=== PATIENT | male | born 1940 | race African-American/Black ===

== ENCOUNTER 2020-07-10 15:22 | Inpatient (IN) | payer MEDICARE, MEDICAID, SELFPAY ==
--- NOTE | ~2020-07-10 | XR_ITS ---
XR chest 1V 07/10/2020 16:44 Indication: Weakness. Hypotension. Procedure: AP view of the chest Comparison: No prior studies for comparison. Findings: Cardiomegaly. No focal air space disease, pulmonary edema, pleural effusion or suspected pn eumothorax. Advanced osteoarthritis of the shoulders. There is ectasia of the thoracic aorta. Impression: 1: No acute cardiopulmonary disease. Reviewed, dictated and finalized at location A. Impression: 1: No acute cardiopulmonary disease.
--- NOTE | ~2020-07-10 | CT_ITS ---
EXAMINATION: CT brain wo con EXAM DATE: 07/10/2020 16:36 INDICATION: Temporary change in awareness. Hypotension. TECHNIQUE: Spiral CT of the head was performed without contrast. Axial, coronal and sagittal images were reviewed. The dose-length product (DLP) for this examination was 681.00 mGy-cm. The exposure w as tailored according to patient size, and iterative reconstruction (ASIR) was used as additional dos e reduction technique. There is no prior study for comparison. FINDINGS: There is no acute intraparenchymal hemorrhage. No evidence of intraparenchymal brain mass lesion. No evidence of acute infarction. Please note that initial head CT has limited sensitivity f or small or acute infarctions. Punctate old bilateral thalamic lacunar infarctions. There is modera te periventricular and subcortical hypodensity, nonspecific but probably related to small vessel isch emic disease. There is moderate prominence of the sulci and ventricles related to cerebral atrophy. There is intracranial carotid arteriosclerosis. There are no extra-axial collections. There is n o mass effect or midline shift. Patient has had bilateral ocular lens surgery. Soft tissue is unrem arkable. Local cerumen in the external auditory canals. Mastoid air cells and imaged portions of sin uses are normal. IMPRESSION: 1. Punctate old lacunar infarctions. 2. Chronic age related findings. Reviewed, dictated and finalized at location G.
[2020-07-10 15:30] VITALS: BP 136/62; PULSE 60; RESP 20; TEMP 36.6; O2SAT 100
--- NOTE | 2020-07-10 15:45 | ECG_ITS ---
Measurements Intervals [place] Rate: 57 P: 22 MT: 206 QRS: -5 QRSD: 114 T: 22 QT: 419 QTc: 408 Interpretive Statements SINUS BRADYCARDIA WITH FIRST DEGREE AV BLOCK INCOMPLETE LEFT BUNDLE BRANCH BLOCK EARLY PRECORDIAL R/S TRANSITION BASELINE ARTIFACT- I, II, III, AVR, AVL, AVF, V1-V6 ABNORMAL ECG Electronically Signed On 07-10-2020 16:08:41 CDT by Star Patten D.O.
--- NOTE | 2020-07-10 15:55 | ED.GENADULT ---
HPI - General Adult General Chief complaint: Altered Mental Status Stated complaint: weakness, altered mental status Time Seen by Provider: 07/10/20 15:29 Source: family History of Present Illness HPI narrative: Patient is 80 y/o male brought in by son for altered mental status. His son states that patient has been less responsive for several weeks. Patient was hospitalized at [facility] for low BP and discharged on 06/18/2020. Patient has not been able to ambulate since his last admission. He is not talking, although he is able to eat and drink. There is no known alleviating or exacerbating factor. Son states that there is no fever, cough, vomiting or diarrhea. Related Data Home Medications Medication Instructions Recorded Confirmed Unable to Obtain Home Medications 07/10/20 07/10/20 Allergies Allergy/AdvReac Type Severity Reaction Status Date / Time No Known Allergies Allergy Verified 07/10/20 17:21 Review of Systems Review of Systems: ROS unobtainable: Yes unobtainable due to mental status [facility] Family History Family History (Updated 07/10/20 @ 19:04 by Demetria Briseno RN) Other Unknown family medical history Social History Social History Smoking status: Never smoker Alcohol intake: former Substance use: never Spiritual care concerns: No Exam Const: General: no acute distress and well developed Orientation/consciousness: lethargic HENMT: Head: normocephalic Ears: external ears normal General nose exam: Normal external nose present Eyes: General: appearance normal, both eyes and all related structures Conjunctivae: conjunctivae normal Neck: Neck: normal visual inspection and full ROM Chest: Chest palpation & inspection: normal inspection of the chest and no tenderness Resp: Effort & Inspection: normal respiratory effort Auscultation: clear to auscultation bilaterally Cardio: Rate: regular rate Rhythm: regular rhythm GI: GI Palp: No abdominal tenderness and Yes Soft to palpation Skin: General skin exam: normal color and turgor normal Neuro: Motor exam (neuro): Other motor observations present (muscle rigidity) Other: does not answer questions or follow commands Extrem: General: normal to inspection, full ROM and no pedal edema Psych: Appearance: grossly normal Mental Status: mental status grossly abnormal Affect: Blunted affect present Course Consultations Consultation #1: Discussed with BREN Conner, who agrees to admit to Dr. Willis. Date: 07/10/20 Time: 17:13 Vital Signs Vital signs: Vital Signs Temperature 36.6 C 07/10/20 15:30 Pulse Rate 60 07/10/20 15:30 Respiratory Rate 20 07/10/20 15:30 Blood Pressure 136/62 07/10/20 15:30 Pulse Oximetry 100 07/10/20 15:30 Temperature 36.2 C L 07/10/20 18:45 Pulse Rate 113 H 07/10/20 18:45 Respiratory Rate 20 07/10/20 18:45 Blood Pressure 152/99 H 07/10/20 18:45 Pulse Oximetry 100 07/10/20 18:45 Medical Decision Making Vital Signs Vital Signs: Vital Signs Temperature 36.6 C 07/10/20 15:30 Pulse Rate 60 07/10/20 15:30 Respiratory Rate 07/10/20 15:30 Blood Pressure 136/62 07/10/20 15:30 Pulse Oximetry 100 07/10/20 15:30 Temperature 36.2 C L 07/10/20 18:45 Pulse Rate 113 H 07/10/20 18:45 Respiratory Rate 07/10/20 18:45 Blood Pressure 152/99 H 07/10/20 18:45 Pulse Oximetry 100 07/10/20 18:45 Lab Data Result diagrams: 07/10/20 15:50 07/10/20 15:50 Labs: Lab Results 07/10/20 07/10/20 07/10/20 Range/Units 15:50 15:50 15:50 WBC 6.7 (4.5-10.0) K/mm3 RBC 2.84 L (4.6-6.20) M/mm3 Hgb 8.9 L (14.0-18.0) g/dL Hct 27.4 L (42.0-52.0) % MCV 96.5 (80-100) fl MCH 31.3 (26-34) pg MCHC 32.5 (32-36) g/dl RDW 11.9 (11.5-14.5) % Plt Count 251 (150-375) k/mm3 MPV 10.4 (7.4-10.4) fl Immature Gran % (Auto) 0
[2020-07-10 15:58] LABS: Basophils Percent Auto 0.3 % (0.2-1.2); Eosinophils Absolute Auto 0.1 K/mm3 (0-0.3); Eosinophils Percent Auto 0.9 % (0-4.4); Hematocrit 27.4 % (42.0-52.0); Hemoglobin 8.9 g/dL (14.0-18.0); Immature Granulocyte Absolute 0.03 K/mm3 (0.00-0.031); Immature Granulocyte Percent A 0.4 % (0-0.5); Lymphocytes Absolute Auto 0.99 K/mm3 (0.9-3.2); Lymphocytes Percent Auto 14.8 % (18.3-44.2); Mean Corpuscular HGB Conc 32.5 g/dl (32-36); Mean Corpuscular Hemoglobin 31.3 pg (26-34); Mean Corpuscular Volume 96.5 fl (80-100); Mean Platelet Volume 10.4 fl (7.4-10.4); Monocytes Absolute Auto 0.5 K/mm3 (0.1-0.6); Monocytes Percent Auto 7.6 % (2.6-8.5); Neutrophils Absolute Auto 5.1 K/mm3 (1.3-6.7); Platelet Count Result 251 k/mm3 (150-375); Red Blood Count 2.84 M/mm3 (4.6-6.20); Red Cell Distribution Width 11.9 % (11.5-14.5); White Blood Count 6.7 K/mm3 (4.5-10.0)
[2020-07-10 16:07] LABS: Add Urine Microscopic? YES; Amorphous Sediment Urine Few; Appearance Urine Turbid (Clear); Bacteria Urine 2+ /hpf; Bilirubin Urine Negative (Negative); Blood Urine 1+ (Negative); Color Urine Yellow (Yellow); Glucose Urine UA Negative (Negative); Ketones Urine Negative (Negative); Leukocyte Esterase Ur 3+ LEU/UL (Negative); Nitrate Urine Negative (Negative); Protein Urine 2+ mg/dL (Negative); RBC Urine 21-50 /hpf (0-2); Specific Grav Ur 1.014 (1.001-1.035); WBC Clumps Urine Present /HPF; WBC Urine >75 /hpf
[2020-07-10 16:10] LABS: Alanine Aminotransferase 10 U/L (4-50); Alkaline Phosphatase 73 U/L (38-126); Anion Gap 3 mmol/L (8-16); Aspartate Amino Transferase 49 U/L (17-59); Bilirubin,Total 0.5 mg/dL (0.2-1.3); Blood Urea Nitrogen 31 mg/dL (9-20); Calcium 8.7 mg/dL (8.4-10.2); Carbon Dioxide 26 mmol/L (22-30); Chloride 104 mmol/L (98-107); Estimated Glomerular Filt Rate 58; Glucose 141 mg/dL (75-110); Potassium 4.7 mmol/L (3.4-5.0); Sodium 133 mmol/L (137-145)
[2020-07-10] MEDS: SODIUM CHLORIDE 0.9% IV 1,000 ML 999 ML IV CONT (16:11)
[2020-07-10 16:22] LABS: Troponin I < 0.012 ng/mL (0.000-0.034)
[2020-07-10] MEDS: CIPROFLOXACIN 400 MG/D5W 200ML 200 ML 200 MG IVPB (17:25)
[2020-07-10 17:26] VITALS: BP 146/91; PULSE 63; RESP 18; O2SAT 98
--- NOTE | 2020-07-10 17:58 | PC.NURSE ---
Pt son name Puma. [phone]
[2020-07-10 18:00] VITALS: BP 145/88; PULSE 70; RESP 18; TEMP 37.1; O2SAT 98
[2020-07-10 18:45] VITALS: BP 152/99; PULSE 113; RESP 20; TEMP 36.2; O2SAT 100
[2020-07-10 18:46] VITALS: BMI 25.4
--- NOTE | 2020-07-10 19:05 | PC.NURSE ---
This patient, Aditya Valentin, was admitted to Medical Room 344-01. Patient/family oriented to hospital policies and general routines including ID bracelet, bed and alarms, visiting hours, pain management, procedures, bathroom and other care routines, personal items, smoking policy, room service/diet, and visiting hours. Valuables list has been completed. Information on how to activate the Rapid Response Team has been discussed. Patient/Family are encouraged to report perceived risks to care and to ask questions if they do not understand what they are told or what they should do.
--- NOTE | 2020-07-10 19:30 | PM.IMHP ---
H&P: HPI History of Present Illness Date/Time: 07/10/20 19:30 Chief complaint: Weakness and confusion. Narrative: Aditya Valentin is a very pleasant 80-year-old male with Parkinson's, type 2 diabetes mellitus, and hypertension who presented to the emergency department earlier this afternoon via private vehicle from home for evaluation of generalized weakness and confusion. The patient is able to provide a fair history but is confused at times even appearing to have visual hallucinations (clapping his hands in the air to kill mosquitos that are not there) and as such some of this medical history is obtained via a review of his electronic medical records. I do not see that he has been seen at this facility before and I believe he typically goes to [place] and in fact was hospitalized there from 06/14 through 06/21 for anemia due to GI loss, dehydration with acute kidney injury, and urinary tract infection. He has been profoundly weak since discharge and has not even been able to ambulate, requiring his son's to help him get out of bed to a chair and to the bathroom. By nature he has a quiet demeanor but has been less responsive and talkative for the last several weeks and now seems to be a bit confused. He is apparently eating and drinking as per his usual, but he does admit that sometimes he will cough when eating but he denies history of aspiration. It is my understanding that he is chronically incontinent of urine and he denies dysuria, urgency, hesitancy, and symptoms of incomplete evacuation of his bladder (it is noted that he has BPH, however). He also denies headache, dizziness, focal weakness, paresthesias, fever, chills, sweats, cold and flu symptoms, nausea, vomiting, and diarrhea. There is no mention of any recent falls. Review of Systems Review of Systems: Narrative: Twelve systems were reviewed with pertinent positives and negatives as per HPI. Except as documented, all other systems were reviewed and are negative. 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 Essential hypertension Osteoarthritis Parkinsons disease Type 2 diabetes mellitus Surgical History Surgical History (Updated 07/10/20 @ 19:33 by Dalila G. Gerling, PA-C) History of cholecystectomy Family History Family History (Updated 07/10/20 @ 23:05 by Dalila Su PA-C) Father Malignant neoplasm of prostate Social History Social History (Updated 07/10/20 @ 23:06 by Dalila Su PA-C) Social History: The patient lives in [place] with his son. He is retired from [employer]. He has remote smoking history and quit over 30 years ago. He no longer drinks alcohol and denies illicit substance use. His son, Delonte Valentin, is his surrogate decision maker and he is listed as a full code. Spiritual care concerns: No Meds Home Medications and Allergies Home Medications Medication Instructions Recorded Confirmed Type Unable to Obtain Home Medications 07/10/20 07/10/20 History Allergies Allergy/AdvReac Type Severity Reaction Status Date / Time No Known Allergies Allergy Verified 07/10/20 17:21 Vital Signs Vital Signs - 24 hr 07/10/20 15:30 07/10/20 17:26 07/10/20 18:00 Temperature 97.8 F 98.7 F Pulse Rate 60 63 70 Respiratory Rate 20 18 18 Blood Pressure 136/62 146/91 H 145/88 H Pulse Oximetry 100 98 98 07/10/20 18:45 Temperature 97.1 F L Pulse Rate 113 H Respiratory Rate 20 Blood Pressure 152/99 H Pulse Oximetry 100 Exam Narrative: Exam Narrative: General: A well-developed elderly male in the semi-[place] position in bed in no distress. He is nontoxic in appearance. Weight: 78 kg. BMI: 25.4. HEENT: Masked facies. Pupils reactive. Extraocular motions intact. Oral mucosa moist. Upper denture plate in place. No bottom
--- NOTE | 2020-07-10 19:30 | PC.NURSE ---
Patient son Puma per telephone call voiced that he will bring patient s home medications in on tomorrow. Notified night nurse of the same.
[2020-07-10 19:45] LABS: Troponin I < 0.012 ng/mL (0.000-0.034)
[2020-07-10] MEDS: SODIUM CHLORIDE 0.9% IV 1,000 ML 100 ML IV CONT (20:09)
[2020-07-10 20:15] VITALS: PULSE 56
[2020-07-10 20:30] VITALS: BP 142/65; PULSE 62; RESP 18; TEMP 36.6; O2SAT 100
[2020-07-10 21:49] LABS: Hematocrit 25.4 % (42.0-52.0); Hemoglobin 8.3 g/dL (14.0-18.0)
[2020-07-10 21:59] LABS: Hemoglobin A1C 5.6 % (<5.7)
[2020-07-10 22:00] LABS: Sodium 134 mmol/L (137-145)
[2020-07-10 22:14] LABS: Troponin I < 0.012 ng/mL (0.000-0.034)
[2020-07-10 23:07] LABS: Folic Acid 7.5 ng/mL (2.76->20)
[2020-07-11] VITALS (12 sets, daily range): BP systolic 106–182; BP diastolic 49–143; PULSE 54–69; RESP 12–18; TEMP 36.1–36.6; O2SAT 98–100
[2020-07-11 00:23] LABS: Iron 33 ug/dL (49-181)
[2020-07-11 00:34] LABS: Percent Iron Saturation 19 % (20-50)
[2020-07-11 05:07] LABS: Hematocrit 25.6 % (42.0-52.0); Hemoglobin 8.4 g/dL (14.0-18.0); Mean Corpuscular HGB Conc 32.8 g/dl (32-36); Mean Corpuscular Hemoglobin 31.7 pg (26-34); Mean Corpuscular Volume 96.6 fl (80-100); Mean Platelet Volume 10.3 fl (7.4-10.4); Platelet Count Result 236 k/mm3 (150-375); Red Blood Count 2.65 M/mm3 (4.6-6.20); Red Cell Distribution Width 11.9 % (11.5-14.5); White Blood Count 6.5 K/mm3 (4.5-10.0)
[2020-07-11 05:17] LABS: Anion Gap 2 mmol/L (8-16); Blood Urea Nitrogen 23 mg/dL (9-20); Calcium 8.2 mg/dL (8.4-10.2); Carbon Dioxide 26 mmol/L (22-30); Chloride 108 mmol/L (98-107); Estimated CRCL calculation 53 ml/min; Estimated Glomerular Filt Rate > 60; Glucose 68 mg/dL (75-110); Potassium 4.3 mmol/L (3.4-5.0); Sodium 136 mmol/L (137-145)
--- NOTE | 2020-07-11 06:39 | PC.NURSE ---
Phone call to Dr. Chavez to notify him of the consult needed for this patient. Spoke with him directly and gave information for the consult. Dr. Chavez stated he will be in to see the patient.
[2020-07-11 07:36] LABS: Glucose Point of Care 73 (65-105)
[2020-07-11 11:35] LABS: Glucose Point of Care 100 (65-105)
--- NOTE | 2020-07-11 13:15 | PM.IMPN ---
Progress Note: A&P Assessment and Plan (1) Confusion: Code(s): R41.0 - Disorientation, unspecified Status: Acute Assessment and Plan: 07/11/20 13:15 patient is 80-year-old male a history of hypertension diabetes Parkinson's BPH was brought to emergency department for further evaluation due to increased confusion weakness and unable to do ADLs, patient was recently admitted at [facility] with anemia due to GI blood loss, dehydration and acute kidney injuryand since he was discharge on 06/21 he has been very weak and tired and getting worse, his son brought into the hospital further evaluation and management, currently his quite confused unable to provide detailed review of symptom is alert to himself but unable to give any more history or details, plan is to continue monitor will have a PT OT evaluate the patient patient may benefit going into custodial as he will need more help with ADLs then his family is able to provide (2) Urinary tract infection: Code(s): N39.0 - Urinary tract infection, site not specified Status: Acute Assessment and Plan: Patient is started on Rocephin will follow-up on urine culture and sensitivity further recommendation to follow (3) Protein calorie malnutrition: Code(s): E46 - Unspecified protein-calorie malnutrition Status: Acute Assessment and Plan: will have dietitian consult the patient and recommendation (4) Generalized weakness: Code(s): R53.1 - Weakness Status: Acute Assessment and Plan: will have a PT OT evaluate the (5) Essential hypertension: Code(s): I10 - Essential (primary) hypertension Status: Acute Assessment and Plan: will continue home regimen and monitor (6) Type 2 diabetes mellitus: Code(s): E11.9 - Type 2 diabetes mellitus without complications Status: Acute Assessment and Plan: his hemoglobin A1c is 5.7 diabetes very well controlled, will hold glimepiride while in the hospital as his sugar was low upon arrival will continue to monitor with sliding scale (7) Parkinsons disease: Code(s): G20 - Parkinson's disease Status: Acute Assessment and Plan: will continue home regimen (8) Benign prostatic hyperplasia: Code(s): N40.0 - Benign prostatic hyperplasia without lower urinary tract symptoms Status: Acute Assessment and Plan: patient is on Flomax and trazosin, I am not sure why two medicatios however he is still having problem with BPH, will stop and start finasteride. (9) Normocytic anemia: Code(s): D64.9 - Anemia, unspecified Status: Acute Assessment and Plan: will monitor daily Subjective Date/time seen: 07/11/20 13:15 patient is 80-year-old male a history of hypertension diabetes Parkinson's BPH was brought to emergency department for further evaluation due to increased confusion weakness and unable to do ADLs, patient was recently admitted at [facility] with anemia due to GI blood loss, dehydration and acute kidney injuryand since he was discharge on 06/21 he has been very weak and tired and getting worse, his son brought into the hospital further evaluation and management, currently his quite confused unable to provide detailed review of symptom is alert to himself but unable to give any more history or details, plan is to continue monitor will have a PT OT evaluate the patient patient may benefit going into custodial as he will need more help with ADLs then his family is able to provide Review of Systems Review of Systems: All systems reviewed & are unremarkable except as noted in HPI and below Exam Narrative: Exam Narrative: elderly frail confused Const: General: comfortable and no acute distress HENMT: General nose exam: Normal nares present Eyes: General: appearance normal, both eyes and all related structures Scle
[2020-07-11] MEDS: TAMSULOSIN HCL 0.4 MG CAPSULE PO (13:20)
--- NOTE | 2020-07-11 13:22 | WPDNEURCNPN ---
Assessment and Plan Assessment and plan (1) Normocytic anemia: Code(s): D64.9 - Anemia, unspecified Status: Acute (2) Generalized weakness: Code(s): R53.1 - Weakness Status: Acute (3) Protein calorie malnutrition: Code(s): E46 - Unspecified protein-calorie malnutrition Status: Acute (4) Mild dehydration: Code(s): E86.0 - Dehydration Status: Acute (5) Urinary tract infection: Code(s): N39.0 - Urinary tract infection, site not specified Status: Acute (6) Confusion: Code(s): R41.0 - Disorientation, unspecified Status: Acute (7) Benign prostatic hyperplasia: Code(s): N40.0 - Benign prostatic hyperplasia without lower urinary tract symptoms Status: Acute (8) Essential hypertension: Code(s): I10 - Essential (primary) hypertension Status: Acute (9) Type 2 diabetes mellitus: Code(s): E11.9 - Type 2 diabetes mellitus without complications Status: Acute (10) Parkinsons disease: Code(s): G20 - Parkinson's disease Status: Acute (11) UTI (urinary tract infection): Qualifiers: Hematuria presence: without hematuria Urinary tract infection type: site unspecified Qualified Code(s): N39.0 - Urinary tract infection, site not specified Code(s): N39.0 - Urinary tract infection, site not specified Status: Acute Additional Plan at this point I have asked the nurse to increase his carbidopa levodopa to 1-1/2 3 times a day while he is being observed here and active physical therapy of compression therapy and gait training is in order and he certainly has a neurologist who has seen him in the past and hopefully his going to get better and can have a follow-up with him Consult date: 07/11/20 Time Seen: 13:00 HPI: Aditya Valentin is a 80 year old male who is awake and alert right-handed and able to tell me that he does follow with Dr. Dyer in [facility] for the diagnosis of Parkinson's disease and she is also able to remember that he was admitted at [facility] and since then he has not been able to walk he does except he does have tremor at times it is difficult for him to shave and use his arms and of course he has difficulty walking he does not have any neck pain back pain or lower back pain however incontinent at this time he is being treated for the presumed urinary tract infection Not too long ago he was admitted gait with and since then he has not been able to walk as he did not get any therapy done he also tells me that he has an appointment to see Dr. 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 Essential hypertension Osteoarthritis Parkinsons disease Type 2 diabetes mellitus Surgical History Surgical History History of cholecystectomy Family History Family History Father Malignant neoplasm of prostate Social History Social History Social History: The patient lives in [place] with his son. He is retired from [employer]. He has remote smoking history and quit over 30 years ago. He no longer drinks alcohol and denies illicit substance use. His son, Delonte Valentin, is his surrogate decision maker and he is listed as a full code. Spiritual care concerns: No Meds Home Medications and Allergies Home Medications Medication Instructions Recorded Confirmed Type amlodipine 10 mg DAILY 07/11/20 07/11/20 History carbidopa-levodopa 1 tablet TID 07/11/20 07/11/20 History glimepiride 2 mg DAILY 07/11/20 0
[2020-07-11] MEDS: FINASTERIDE 5 MG TABLET PO (16:15)
[2020-07-11] MEDS: CARBIDOPA/LEVODOPA 12.5/50 MG TABLET 1 TABLET PO (16:16)
[2020-07-11] MEDS: CARBIDOPA/LEVODOPA 25/100 MG TABLET 1 TABLET PO (16:22)
[2020-07-11 16:29] LABS: Glucose Point of Care 119 (65-105)
[2020-07-11 23:34] LABS: Glucose Point of Care 110 (65-105)
[2020-07-12] VITALS (10 sets, daily range): BP systolic 119–187; BP diastolic 52–122; PULSE 54–64; RESP 16–18; TEMP 35.6–36.4; O2SAT 97–100
[2020-07-12 05:38] LABS: Hematocrit 25.6 % (42.0-52.0); Hemoglobin 8.7 g/dL (14.0-18.0); Mean Corpuscular Volume 94.1 fl (80-100); Mean Platelet Volume 10.1 fl (7.4-10.4); Platelet Count Result 240 k/mm3 (150-375); Red Blood Count 2.72 M/mm3 (4.6-6.20); Red Cell Distribution Width 11.7 % (11.5-14.5); White Blood Count 6.6 K/mm3 (4.5-10.0)
[2020-07-12 05:56] LABS: Anion Gap 3 mmol/L (8-16); Blood Urea Nitrogen 20 mg/dL (9-20); Calcium 8.6 mg/dL (8.4-10.2); Carbon Dioxide 27 mmol/L (22-30); Chloride 104 mmol/L (98-107); Estimated CRCL calculation 58 ml/min; Estimated Glomerular Filt Rate > 60; Glucose 95 mg/dL (75-110); Potassium 4.5 mmol/L (3.4-5.0); Sodium 134 mmol/L (137-145)
[2020-07-12 08:00] LABS: Glucose Point of Care 106 (65-105)
[2020-07-12] MEDS: CARBIDOPA/LEVODOPA 12.5/50 MG TABLET 1 TABLET PO ×3 (09:52→17:48)
[2020-07-12] MEDS: SPIRONOLACTONE 25 MG TABLET PO (09:53)
[2020-07-12] MEDS: amLODIPine BESYLATE 5 MG TABLET 10 MG PO (09:53)
[2020-07-12] MEDS: FINASTERIDE 5 MG TABLET PO (09:54)
[2020-07-12] MEDS: CARBIDOPA/LEVODOPA 25/100 MG TABLET 1 TABLET PO ×3 (09:54→17:47)
[2020-07-12] MEDS: LOSARTAN POTASSIUM 100 MG TABLET PO (09:55)
[2020-07-12 11:30] LABS: Glucose Point of Care 94 (65-105)
[2020-07-12] MEDS: TAMSULOSIN HCL 0.4 MG CAPSULE PO (11:33)
[2020-07-12 13:21] LABS: SARS-CoV-2 RNA PCR Negative
--- NOTE | 2020-07-12 15:08 | PM.IMPN ---
Progress Note: A&P Assessment and Plan (1) Confusion: Code(s): R41.0 - Disorientation, unspecified Status: Acute Assessment and Plan: 07/12/20 15:08 patient is 80-year-old male admitted on 07/10 a history of hypertension diabetes Parkinson's BPH was brought to emergency department for further evaluation due to increased confusion weakness and unable to do ADLs, patient was recently admitted at [facility] with anemia due to GI blood loss, dehydration and acute kidney injuryand since he was discharge on 06/21 he has been very weak and tired and getting worse, his son brought into the hospital further evaluation and management, today on 07/12 currently he is still quite confused unable to provide detailed review of symptom is alert to himself but unable to give any more history or details, his urine culture is growing Pseudomonas sensitive to cefepime will DC Rocephin to start the antibiotic, patient with history of BPH he is on flomax, I have added finasteride this may help with urine flow, plan is to continue monitor will have a PT OT evaluate the patient, patient may benefit going into fpc as he will need more help with ADLs then his family is able to provide (2) Urinary tract infection: Code(s): N39.0 - Urinary tract infection, site not specified Status: Acute Assessment and Plan: Patient had started on Rocephin urine culture is growing Pseudomonas sensitive to cefepime, (3) Protein calorie malnutrition: Code(s): E46 - Unspecified protein-calorie malnutrition Status: Acute Assessment and Plan: will have dietitian consult the patient and recommendation (4) Generalized weakness: Code(s): R53.1 - Weakness Status: Acute Assessment and Plan: will have a PT OT evaluate the (5) Essential hypertension: Code(s): I10 - Essential (primary) hypertension Status: Acute Assessment and Plan: will continue home regimen and monitor (6) Type 2 diabetes mellitus: Code(s): E11.9 - Type 2 diabetes mellitus without complications Status: Acute Assessment and Plan: his hemoglobin A1c is 5.7 diabetes very well controlled, will hold glimepiride while in the hospital as his sugar was low upon arrival will continue to monitor with sliding scale (7) Parkinsons disease: Code(s): G20 - Parkinson's disease Status: Acute Assessment and Plan: will continue home regimen (8) Benign prostatic hyperplasia: Code(s): N40.0 - Benign prostatic hyperplasia without lower urinary tract symptoms Status: Acute Assessment and Plan: patient is on Flomax and trazosin, I am not sure why two medicatios however he is still having problem with BPH, will stop and start finasteride. (9) Normocytic anemia: Code(s): D64.9 - Anemia, unspecified Status: Acute Assessment and Plan: will monitor daily Subjective Date/time seen: 07/12/20 15:08 patient is 80-year-old male admitted on 07/10 a history of hypertension diabetes Parkinson's BPH was brought to emergency department for further evaluation due to increased confusion weakness and unable to do ADLs, patient was recently admitted at [facility] with anemia due to GI blood loss, dehydration and acute kidney injuryand since he was discharge on 06/21 he has been very weak and tired and getting worse, his son brought into the hospital further evaluation and management, today on 07/12 currently he is still quite confused unable to provide detailed review of symptom is alert to himself but unable to give any more history or details, his urine culture is growing Pseudomonas sensitive to cefepime will DC Rocephin to start the antibiotic, patient with history of BPH he is on flomax, I have added finasteride this may help with urine flow, plan is to continue monitor will have a PT OT evaluate the
--- NOTE | 2020-07-12 16:19 | PCPTNOTE ---
The patient treatment was not able to be completed on 07/12/2020. Will plan to continue treatment per plan of care.
[2020-07-12 16:41] LABS: Glucose Point of Care 133 (65-105)
[2020-07-12 22:26] LABS: Glucose Point of Care 114 (65-105)
[2020-07-13] VITALS (9 sets, daily range): BP systolic 146–164; BP diastolic 68–89; PULSE 58–68; RESP 17–18; TEMP 36.1–36.5; O2SAT 99–100
[2020-07-13 05:42] LABS: Hematocrit 25.3 % (42.0-52.0); Hemoglobin 8.4 g/dL (14.0-18.0); Mean Corpuscular HGB Conc 33.2 g/dl (32-36); Mean Corpuscular Hemoglobin 31.1 pg (26-34); Mean Corpuscular Volume 93.7 fl (80-100); Mean Platelet Volume 9.9 fl (7.4-10.4); Platelet Count Result 214 k/mm3 (150-375); Red Cell Distribution Width 11.6 % (11.5-14.5); White Blood Count 5.5 K/mm3 (4.5-10.0)
[2020-07-13 06:03] LABS: Anion Gap 2 mmol/L (8-16); Blood Urea Nitrogen 19 mg/dL (9-20); Calcium 8.8 mg/dL (8.4-10.2); Carbon Dioxide 28 mmol/L (22-30); Chloride 103 mmol/L (98-107); Estimated CRCL calculation 65 ml/min; Estimated Glomerular Filt Rate > 60; Glucose 95 mg/dL (75-110); Potassium 4.5 mmol/L (3.4-5.0); Sodium 133 mmol/L (137-145)
[2020-07-13 07:47] LABS: Glucose Point of Care 84 (65-105)
--- NOTE | 2020-07-13 09:04 | PCPTNOTE ---
PT attempted bed mobility and transfer from bed to chair, however patient resisted attempts to roll and swatted at therapist when attempting to assist patient. LE exercises were initiated with active assist but patient then resisted movement after ~10 reps of knee flexion, hip flexion, abduction and adduction.
[2020-07-13] MEDS: FINASTERIDE 5 MG TABLET PO (09:44)
[2020-07-13] MEDS: LOSARTAN POTASSIUM 100 MG TABLET PO (09:44)
[2020-07-13] MEDS: amLODIPine BESYLATE 5 MG TABLET 10 MG PO (09:44)
[2020-07-13] MEDS: CARBIDOPA/LEVODOPA 25/100 MG TABLET 1 TABLET PO (09:44)
[2020-07-13] MEDS: SPIRONOLACTONE 25 MG TABLET PO (09:44)
--- NOTE | 2020-07-13 09:52 | PC.NURSE ---
Carbidopa 12.5-50 will not scan, sent to pharmacy for verification; administration pending medication availability.
[2020-07-13] MEDS: CARBIDOPA/LEVODOPA 12.5/50 MG TABLET 1 TABLET PO (10:51)
[2020-07-13 11:55] LABS: Glucose Point of Care 88 (65-105)
--- NOTE | 2020-07-13 13:06 | PCOTNOTE ---
Attempted to see patient for skilled OT. Patient unable to follow 1-step commands and during attempt to perform AAROM/PROM patient became agitated and resistive and was unwilling to participate. Will continue plan of care tomorrow, 07/14/2020.
--- NOTE | 2020-07-13 13:42 | PM.IMPN ---
Progress Note: A&P Assessment and Plan (1) Confusion: Code(s): R41.0 - Disorientation, unspecified Status: Acute Assessment and Plan: 07/13/20 13:42 patient is 80-year-old male admitted on 07/10 a history of hypertension diabetes Parkinson's BPH was brought to emergency department for further evaluation due to increased confusion weakness and unable to do ADLs, patient was recently admitted at [facility] with anemia due to GI blood loss, dehydration and acute kidney injuryand since he was discharge on 06/21 he has been very weak and tired and getting worse, his son brought into the hospital further evaluation and management, today on 07/13 currently he is still more confused, uncooperative not taking his medications and does not participate in PT/OT unable to provide detailed review of symptom is alert to himself but unable to give any more history or details, his urine culture is growing Pseudomonas sensitive to cefepime will DC Rocephin to start the antibiotic, patient with history of BPH he is on flomax, I have added finasteride this may help with urine flow, patient with Parkinson and seen by neurologist and increased his Sinemet, plan is to continue monitor will have a PT OT evaluate the patient, patient may benefit going into [facility] as he will need more help with ADLs then his family is able to provide (2) Urinary tract infection: Code(s): N39.0 - Urinary tract infection, site not specified Status: Acute Assessment and Plan: Patient had started on Rocephin urine culture is growing Pseudomonas sensitive to cefepime, (3) Protein calorie malnutrition: Code(s): E46 - Unspecified protein-calorie malnutrition Status: Acute Assessment and Plan: will have dietitian consult the patient and recommendation (4) Generalized weakness: Code(s): R53.1 - Weakness Status: Acute Assessment and Plan: will have a PT OT evaluate the (5) Essential hypertension: Code(s): I10 - Essential (primary) hypertension Status: Acute Assessment and Plan: will continue home regimen and monitor (6) Type 2 diabetes mellitus: Code(s): E11.9 - Type 2 diabetes mellitus without complications Status: Acute Assessment and Plan: his hemoglobin A1c is 5.7 diabetes very well controlled, will hold glimepiride while in the hospital as his sugar was low upon arrival will continue to monitor with sliding scale (7) Parkinsons disease: Code(s): G20 - Parkinson's disease Status: Acute Assessment and Plan: will continue home regimen plan is above, (8) Benign prostatic hyperplasia: Code(s): N40.0 - Benign prostatic hyperplasia without lower urinary tract symptoms Status: Acute Assessment and Plan: patient is on Flomax and trazosin, I am not sure why two medicatios however he is still having problem with BPH, will stop and start finasteride. (9) Normocytic anemia: Code(s): D64.9 - Anemia, unspecified Status: Acute Assessment and Plan: will monitor daily Subjective Date/time seen: 07/13/20 13:42 patient is 80-year-old male admitted on 07/10 a history of hypertension diabetes Parkinson's BPH was brought to emergency department for further evaluation due to increased confusion weakness and unable to do ADLs, patient was recently admitted at [facility] with anemia due to GI blood loss, dehydration and acute kidney injuryand since he was discharge on 06/21 he has been very weak and tired and getting worse, his son brought into the hospital further evaluation and management, today on 07/13 currently he is still more confused, uncooperative not taking his medications and does not participate in PT/OT unable to provide detailed review of symptom is alert to himself but unable to give any more history or details, his urine culture is jalen
[2020-07-13 17:05] LABS: Glucose Point of Care 96 (65-105)
[2020-07-13 23:47] LABS: Glucose Point of Care 87 (65-105)
[2020-07-14] VITALS: BP 94/63; PULSE 73; RESP 18; TEMP 36.7; O2SAT 98
[2020-07-14 04:00] VITALS: BP 117/77; PULSE 74; RESP 16; TEMP 36.2; O2SAT 99
[2020-07-14 04:24] VITALS: PULSE 74
[2020-07-14 05:45] LABS: Hematocrit 25.7 % (42.0-52.0); Hemoglobin 8.5 g/dL (14.0-18.0); Mean Corpuscular HGB Conc 33.1 g/dl (32-36); Mean Corpuscular Hemoglobin 30.9 pg (26-34); Mean Corpuscular Volume 93.5 fl (80-100); Platelet Count Result 226 k/mm3 (150-375); Red Blood Count 2.75 M/mm3 (4.6-6.20); Red Cell Distribution Width 11.7 % (11.5-14.5); White Blood Count 5.1 K/mm3 (4.5-10.0)
[2020-07-14 06:04] LABS: Anion Gap 3 mmol/L (8-16); Blood Urea Nitrogen 17 mg/dL (9-20); Carbon Dioxide 27 mmol/L (22-30); Chloride 102 mmol/L (98-107); Estimated CRCL calculation 58 ml/min; Estimated Glomerular Filt Rate > 60; Glucose 90 mg/dL (75-110); Potassium 4.4 mmol/L (3.4-5.0); Sodium 132 mmol/L (137-145)
[2020-07-14 08:00] VITALS: PULSE 69
[2020-07-14 08:06] LABS: Glucose Point of Care 76 (65-105)
[2020-07-14] MEDS: SPIRONOLACTONE 25 MG TABLET PO (09:16)
--- NOTE | 2020-07-14 10:41 | PM.IMPN ---
Progress Note: A&P Assessment and Plan (1) Confusion: Code(s): R41.0 - Disorientation, unspecified Status: Acute Assessment and Plan: 07/14/20 10:41 patient is 80-year-old male admitted on 07/10 a history of hypertension diabetes Parkinson's BPH was brought to emergency department for further evaluation due to increased confusion weakness and unable to do ADLs, patient was recently admitted at [facility] with anemia due to GI blood loss, dehydration and acute kidney injuryand since he was discharge on 06/21 he has been very weak and tired and getting worse, his son brought into the hospital further evaluation and management, today on 07/14 currently he is still more confused, uncooperative not taking his medications and does not participate in PT/OT unable to provide detailed review of symptom is alert to himself but unable to give any more history or details, his urine culture is growing Pseudomonas sensitive to cefepime will DC Rocephin started the antibiotic on 07/12, patient with history of BPH he is on flomax, I have added finasteride this may help with urine flow, lipscomb has not taken the medications for 2 days, patient with Parkinson and seen by neurologist and increased his Sinemet again patient has taken his medication for 2 days, plan is to continue monitor will have a PT OT evaluate the patient, I spoke to patient and will call patient son to discuss future planning, as patient is refusing his medications and participating in PT/OT, may consider hospice. patient may benefit going into [facility] as he will need more help with ADLs then his family is able to provide (2) Urinary tract infection: Code(s): N39.0 - Urinary tract infection, site not specified Status: Acute Assessment and Plan: Patient had started on Rocephin urine culture is growing Pseudomonas sensitive to cefepime, (3) Protein calorie malnutrition: Code(s): E46 - Unspecified protein-calorie malnutrition Status: Acute Assessment and Plan: will have dietitian consult the patient and recommendation (4) Generalized weakness: Code(s): R53.1 - Weakness Status: Acute Assessment and Plan: will have a PT OT evaluate the (5) Essential hypertension: Code(s): I10 - Essential (primary) hypertension Status: Acute Assessment and Plan: will continue home regimen and monitor (6) Type 2 diabetes mellitus: Code(s): E11.9 - Type 2 diabetes mellitus without complications Status: Acute Assessment and Plan: his hemoglobin A1c is 5.7 diabetes very well controlled, will hold glimepiride while in the hospital as his sugar was low upon arrival will continue to monitor with sliding scale (7) Parkinsons disease: Code(s): G20 - Parkinson's disease Status: Acute Assessment and Plan: will continue home regimen plan is above, (8) Benign prostatic hyperplasia: Code(s): N40.0 - Benign prostatic hyperplasia without lower urinary tract symptoms Status: Acute Assessment and Plan: patient is on Flomax and trazosin, I am not sure why two medicatios however he is still having problem with BPH, will stop and start finasteride. (9) Normocytic anemia: Code(s): D64.9 - Anemia, unspecified Status: Acute Assessment and Plan: will monitor daily Subjective Date/time seen: 07/14/20 10:41 patient is 80-year-old male admitted on 07/10 a history of hypertension diabetes Parkinson's BPH was brought to emergency department for further evaluation due to increased confusion weakness and unable to do ADLs, patient was recently admitted at [facility] with anemia due to GI blood loss, dehydration and acute kidney injuryand since he was discharge on 06/21 he has been very weak and tired and getting worse, his son brought into the hospital further evaluation and manageme
--- NOTE | 2020-07-14 11:43 | PC.NURSE ---
Dr. Lynn and Dr. Evans have both been notified that patient is continuing to refuse medications and is resistant to care. Family has been requested to come to the hospital for a face to face conversation r/t patient care and planning.
[2020-07-14 12:00] VITALS: PULSE 77
[2020-07-14 12:35] LABS: Glucose Point of Care 129 (65-105)
[2020-07-14 16:32] LABS: Glucose Point of Care 103 (65-105)
[2020-07-14 20:00] VITALS: BP 135/83; PULSE 70; RESP 14; TEMP 36.1; O2SAT 100
[2020-07-14 22:28] LABS: Glucose Point of Care 104 (65-105)
[2020-07-15] VITALS: BP 138/69; PULSE 67; RESP 16; TEMP 36.6; O2SAT 100
[2020-07-15 04:00] VITALS: BP 123/65; PULSE 61; RESP 16; TEMP 36.3; O2SAT 100
[2020-07-15 07:11] LABS: Hematocrit 25.9 % (42.0-52.0); Hemoglobin 8.7 g/dL (14.0-18.0); Mean Corpuscular HGB Conc 33.6 g/dl (32-36); Mean Corpuscular Hemoglobin 31.4 pg (26-34); Mean Corpuscular Volume 93.5 fl (80-100); Mean Platelet Volume 10.2 fl (7.4-10.4); Platelet Count Result 205 k/mm3 (150-375); Red Blood Count 2.77 M/mm3 (4.6-6.20); Red Cell Distribution Width 11.8 % (11.5-14.5); White Blood Count 6.1 K/mm3 (4.5-10.0)
[2020-07-15 07:25] LABS: Anion Gap 2 mmol/L (8-16); Blood Urea Nitrogen 28 mg/dL (9-20); Carbon Dioxide 27 mmol/L (22-30); Chloride 103 mmol/L (98-107); Estimated CRCL calculation 45 ml/min; Estimated Glomerular Filt Rate > 60; Glucose 80 mg/dL (75-110); Potassium 4.7 mmol/L (3.4-5.0); Sodium 132 mmol/L (137-145)
[2020-07-15 07:55] LABS: Glucose Point of Care 71 (65-105)
[2020-07-15] MEDS: CARBIDOPA/LEVODOPA 25/100 MG TABLET 1 TABLET PO ×2 (12:02→16:55)
[2020-07-15] MEDS: CARBIDOPA/LEVODOPA 12.5/50 MG TABLET 1 TABLET PO ×2 (12:02→16:55)
--- NOTE | 2020-07-15 12:24 | PCOTNOTE ---
OT treatment not completed this date due to patient's increased agitation stating Get out of my room!
[2020-07-15 14:08] LABS: Glucose Point of Care 73 (65-105)
[2020-07-15 15:16] VITALS: BP 110/63; PULSE 60; RESP 16; TEMP 36.3; O2SAT 100
--- NOTE | 2020-07-15 15:27 | PM.IMPN ---
Progress Note: A&P Assessment and Plan (1) Confusion: Code(s): R41.0 - Disorientation, unspecified Status: Acute Assessment and Plan: 07/15/20 15:27 patient is 80-year-old male admitted on 07/10 a history of hypertension diabetes Parkinson's BPH was brought to emergency department for further evaluation due to increased confusion weakness and unable to do ADLs, patient was recently admitted at [facility] with anemia due to GI blood loss, dehydration and acute kidney injuryand since he was discharge on 06/21 he has been very weak and tired and getting worse, his son brought into the hospital further evaluation and management, today on 07/14 currently he is still more confused, uncooperative not taking his medications and does not participate in PT/OT unable to provide detailed review of symptom is alert to himself but unable to give any more history or details, his urine culture is growing Pseudomonas sensitive to cefepime will DC Rocephin started the antibiotic on 07/12, patient with history of BPH he is on flomax, I have added finasteride this may help with urine flow, lipscomb has not taken the medications for 2 days, patient with Parkinson and seen by neurologist and increased his Sinemet again patient has taken his medication for 2 days, plan is to continue monitor will have a PT OT evaluate the patient, on 07/14 patient son was present in the room and I spoke with him, as his father dementia is getting worse, he is not cooperative with his care and does not want to take his medication, he may want to consider comfort care or hospice today on 07/15 he met with hospice service and agreed to admit his father under hospice care. today patient is very Somnolent and not very cooperative., will discharge patient tomorrow under hospice care (2) Urinary tract infection: Code(s): N39.0 - Urinary tract infection, site not specified Status: Acute Assessment and Plan: Patient had started on Rocephin urine culture is growing Pseudomonas sensitive to cefepime, (3) Protein calorie malnutrition: Code(s): E46 - Unspecified protein-calorie malnutrition Status: Acute Assessment and Plan: will have dietitian consult the patient and recommendation (4) Generalized weakness: Code(s): R53.1 - Weakness Status: Acute Assessment and Plan: will have a PT OT evaluate the (5) Essential hypertension: Code(s): I10 - Essential (primary) hypertension Status: Acute Assessment and Plan: will continue home regimen and monitor (6) Type 2 diabetes mellitus: Code(s): E11.9 - Type 2 diabetes mellitus without complications Status: Acute Assessment and Plan: his hemoglobin A1c is 5.7 diabetes very well controlled, will hold glimepiride while in the hospital as his sugar was low upon arrival will continue to monitor with sliding scale (7) Parkinsons disease: Code(s): G20 - Parkinson's disease Status: Acute Assessment and Plan: will continue home regimen plan is above, (8) Benign prostatic hyperplasia: Code(s): N40.0 - Benign prostatic hyperplasia without lower urinary tract symptoms Status: Acute Assessment and Plan: patient is on Flomax and trazosin, I am not sure why two medicatios however he is still having problem with BPH, will stop and start finasteride. (9) Normocytic anemia: Code(s): D64.9 - Anemia, unspecified Status: Acute Assessment and Plan: will monitor daily Additional Plan The patient has been admitted to the hospitalist service for further evaluation of confusion and treatment of urinary tract infection. I suspect that his increase in confusion is likely related to the UTI in addition to mild dehydration although he may have a component of dementia related to his Parkinson's. He has been started on ceftriaxone, pending urine culture. Given his ane
[2020-07-15 17:18] LABS: Glucose Point of Care 100 (65-105)
[2020-07-15 20:00] VITALS: BP 153/80; PULSE 62; RESP 14; TEMP 36.2; O2SAT 100
[2020-07-15 22:19] LABS: Glucose Point of Care 88 (65-105)
[2020-07-16 06:01] LABS: Hematocrit 25.4 % (42.0-52.0); Hemoglobin 8.4 g/dL (14.0-18.0); Mean Corpuscular HGB Conc 33.1 g/dl (32-36); Mean Corpuscular Hemoglobin 31.1 pg (26-34); Mean Corpuscular Volume 94.1 fl (80-100); Mean Platelet Volume 10.4 fl (7.4-10.4); Platelet Count Result 197 k/mm3 (150-375); Red Cell Distribution Width 11.9 % (11.5-14.5); White Blood Count 6.7 K/mm3 (4.5-10.0)
[2020-07-16 06:19] LABS: Anion Gap 3 mmol/L (8-16); Blood Urea Nitrogen 25 mg/dL (9-20); Calcium 8.9 mg/dL (8.4-10.2); Carbon Dioxide 29 mmol/L (22-30); Chloride 103 mmol/L (98-107); Estimated CRCL calculation 48 ml/min; Estimated Glomerular Filt Rate > 60; Glucose 103 mg/dL (75-110); Potassium 4.5 mmol/L (3.4-5.0); Sodium 135 mmol/L (137-145)
[2020-07-16 06:26] VITALS: BP 150/76; PULSE 55; RESP 14; TEMP 36.5; O2SAT 100
[2020-07-16 08:00] LABS: Glucose Point of Care 128 (65-105)
[2020-07-16] MEDS: SPIRONOLACTONE 25 MG TABLET PO (09:45)
[2020-07-16] MEDS: LOSARTAN POTASSIUM 100 MG TABLET PO (09:46)
[2020-07-16] MEDS: FINASTERIDE 5 MG TABLET PO (09:46)
[2020-07-16] MEDS: amLODIPine BESYLATE 5 MG TABLET 10 MG PO (09:46)
[2020-07-16] MEDS: CARBIDOPA/LEVODOPA 12.5/50 MG TABLET 1 TABLET PO ×2 (09:46→13:44)
[2020-07-16] MEDS: CARBIDOPA/LEVODOPA 25/100 MG TABLET 1 TABLET PO ×2 (09:46→13:44)
--- NOTE | 2020-07-16 10:16 | PM.DS ---
DS: Admitting Diagnosis Admitting Diagnosis Admitting Diagnosis: Weakness and confusion. DS: Discharge Diagnosis Discharge Diagnosis (1) Confusion: Code(s): R41.0 - Disorientation, unspecified Status: Acute Assessment and Plan: 07/15/20 15:27 patient is 80-year-old male admitted on 07/10 a history of hypertension diabetes Parkinson's BPH was brought to emergency department for further evaluation due to increased confusion weakness and unable to do ADLs, patient was recently admitted at [facility] with anemia due to GI blood loss, dehydration and acute kidney injuryand since he was discharge on 06/21 he has been very weak and tired and getting worse, his son brought into the hospital further evaluation and management, today on 07/14 currently he is still more confused, uncooperative not taking his medications and does not participate in PT/OT unable to provide detailed review of symptom is alert to himself but unable to give any more history or details, his urine culture is growing Pseudomonas sensitive to cefepime will DC Rocephin started the antibiotic on 07/12, patient with history of BPH he is on flomax, I have added finasteride this may help with urine flow, lipscomb has not taken the medications for 2 days, patient with Parkinson and seen by neurologist and increased his Sinemet again patient has taken his medication for 2 days, plan is to continue monitor will have a PT OT evaluate the patient, on 07/14 patient son was present in the room and I spoke with him, as his father dementia is getting worse, he is not cooperative with his care and does not want to take his medication, he may want to consider comfort care or hospice today on 07/15 he met with hospice service and agreed to admit his father under hospice care. today patient is very Somnolent and not very cooperative., will discharge patient tomorrow under hospice care (2) Urinary tract infection: Code(s): N39.0 - Urinary tract infection, site not specified Status: Acute Assessment and Plan: Patient had started on Rocephin urine culture is growing Pseudomonas sensitive to cefepime, (3) Protein calorie malnutrition: Code(s): E46 - Unspecified protein-calorie malnutrition Status: Acute Assessment and Plan: will have dietitian consult the patient and recommendation (4) Generalized weakness: Code(s): R53.1 - Weakness Status: Acute Assessment and Plan: will have a PT OT evaluate the (5) Essential hypertension: Code(s): I10 - Essential (primary) hypertension Status: Acute Assessment and Plan: will continue home regimen and monitor (6) Type 2 diabetes mellitus: Code(s): E11.9 - Type 2 diabetes mellitus without complications Status: Acute Assessment and Plan: his hemoglobin A1c is 5.7 diabetes very well controlled, will hold glimepiride while in the hospital as his sugar was low upon arrival will continue to monitor with sliding scale (7) Parkinsons disease: Code(s): G20 - Parkinson's disease Status: Acute Assessment and Plan: will continue home regimen plan is above, (8) Benign prostatic hyperplasia: Code(s): N40.0 - Benign prostatic hyperplasia without lower urinary tract symptoms Status: Acute Assessment and Plan: patient is on Flomax and trazosin, I am not sure why two medicatios however he is still having problem with BPH, will stop and start finasteride. (9) Normocytic anemia: Code(s): D64.9 - Anemia, unspecified Status: Acute Assessment and Plan: will monitor daily DS: Summary Hospital Course Reason for hospitalization: Chief complaint: Weakness and confusion. Narrative: Aditya Valentin is a very pleasant 80-year-old male with Parkinson's, type 2 diabetes mellitus, and hypertension who presented to the emergency department earlier this afternoon via private vehi
[2020-07-16 11:43] LABS: Glucose Point of Care 197 (65-105)
[2020-07-16] MEDS: TAMSULOSIN HCL 0.4 MG CAPSULE PO (12:04)
== END 2020-07-16 14:23 | disposition hospice, home (50) | DRG 690 ==
LOC: ANHED 17:20 → ANH3MED 17:48
PROVIDERS: Internal Medicine; Physician Assistant; Admitting Provider Internal Medicine; Emergency Provider Emergency Medicine; PCP Internal Medicine; Visit Provider Family Medicine
DX: N39.0 Urinary tract infection, site not specified (principal); E46 Unspecified protein-calorie malnutrition; E11.9 Type 2 diabetes mellitus without complications; I10 Essential (primary) hypertension; G20 Parkinson's disease; N40.0 Benign prostatic hyperplasia without lower urinary tract symptoms; D64.9 Anemia, unspecified; B96.5 Pseudomonas (aeruginosa) (mallei) (pseudomallei) as the cause of diseases classified elsewhere; F02.80 Dementia in other diseases classified elsewhere, unspecified severity, without behavioral disturbance, psychotic disturbance, mood disturbance, and anxiety; Z20.828 Contact with and (suspected) exposure to other viral communicable diseases
CPT/HCPCS: 36415; 70450; 71045; 80048; 80053; 81001; 82607; 82728; 82746; 83036; 83540; 83550; 83735; 84295; 84443; 84484; 85014; 85018; 85025; 85027; 87077; 87086; 87088; 87186; 87635; 93005; 96361; 96365; 96367; 96375; 97110; 97162; 97166; 97535; 99285; A9270; C9803; G0378; J0692; J0696; J0744; J7030; U0003